=== PATIENT | male | born 2000 | race Caucasian/White ===

== ENCOUNTER 2024-05-14 00:31 | Emergency (ER) | payer SELFPAY ==
[2024-05-14 00:36] VITALS: BP 120/81; PULSE 72; RESP 18; TEMP 98.3
[2024-05-14 00:48] LABS: Glucose,Whole Blood 148 mg/dL (70-110)
--- NOTE | 2024-05-14 00:59 | ED ---
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 care or by your primary care provider. Sutures in your mouth will dissolve on their own. Please apply ice to areas of pain for 20 minutes every 3-4 hours. Your pain can be treated with ibuprofen and acetaminophen. You can take up to 400-600 mg of ibuprofen (Advil, Motrin) 3 times daily (every 8 hours) but can also use lower doses if this relieves your pain. Some people prefer naproxen (Aleve, Naprosyn) which can be taken in doses of 500 mg up to twice a day. Do not take both of these medicines together, and do not combine either with ketor olac (Toradol), meloxicam (Mobic), or indomethacin (Tivorbex). Some people can develop stomach discomfort with higher doses of either ibuprofen or naproxen, if this develops decrease your dose or stop taking it. If you need to take this dose daily for more than a week, please schedule an appointment for re- evaluation with your PCP. Please take these medications with food. You can take up to 1000 mg of acetaminophen (Tylenol) every 6 hours. Be careful as this is included in some medicines like Nyquil, [place], Percocet, Vicodin, STANBACK, Goody's Powders, and Excedrin. You can also use lidocaine patches for topical pain. You can purchase 4% patches over the counter at most drug stores. These can be helpful for pain from your muscles or bones. PLEASE call your primary care physician as soon as possible to arrange / discuss plan for followup appointment. Appointment in the next 1-3 days is strongly encouraged if possible. PLEASE let us know here before you leave if there is anything further we can do to be of any assistance. Take care and feel Better! Prescriptions: Ibuprofen 800 mg PO Q8H #21 tab Referrals: None,Stated [Primary Care Provider] - 1-2 days
[2024-05-14 01:14] LABS: Basophils # (A) 0.1 k/uL (0-0.2); Basophils % (A) 1 %; Eosinophils # (A) 0.1 k/uL (0-0.7); Eosinophils % (A) 1 %; HGB 15.5 gm/dL (13.0-17.5); Lymphocytes # (A) 3.1 k/uL (1.0-4.8); Lymphocytes % (A) 29 %; MCHC 32.9 g/dL (31.0-37.0); MCV 91.1 fL (80.0-100.0); Mean Platelet Volume 7.8; Monocytes # (A) 0.8 k/uL (0-1.0); Monocytes % (A) 7 %; Neutrophils # (A) 6.3 k/uL (1.3-7.7); Neutrophils % (A) 60 %; Platelet Count 314 k/uL (150-450); RBC 5.15 m/uL (4.30-5.90); WBC 10.5 k/uL (3.8-10.6)
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
[2024-05-14 01:27] LABS: ALT 18 U/L (4-49); AST 30 U/L (17-59); African American GFR (CKD) >90 (>60 ml/min/1.73 sqM); Albumin 4.9 g/dL (3.5-5.0); Alkaline Phosphatase 132 U/L (38-126); Anion Gap 14 mmol/L; Blood Urea Nitrogen 7 mg/dL (9-20); Calcium 9.3 mg/dL (8.4-10.2); Carbon Dioxide 21 mmol/L (22-30); Chloride 109 mmol/L (98-107); Glucose 103 mg/dL (74-99); Non-African American GFR(CKD) 88 (>60 ml/min/1.73 sqM); Sodium 144 mmol/L (137-145); Total Protein 7.4 g/dL (6.3-8.2)
[2024-05-14] MEDS: KETOROLAC 15 MG/ML 1 ML VIAL IVP STA (01:31)
[2024-05-14] MEDS: SODIUM CHLORIDE 0.9% 1,000 ML IV STA (01:33)
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
[2024-05-14] MEDS: ACETAMINOPHEN TAB 500 MG TAB PO STA (01:35)
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
[2024-05-14 01:46] LABS: Alcohol 233 mg/dL
[2024-05-14 01:48] LABS: INR 0.9 (<1.2); Partial Thromboplastin Time 21.2 sec (22.0-30.0); Prothrombin Time 10.4 sec (10.0-12.5)
[2024-05-14 02:31] LABS: Appearance,Urine Clear (Clear); Bilirubin,Urine Negative (Negative); Blood,Urine Negative (Negative); Color,Urine Colorless; Glucose,Urine (UA) Negative (Negative); Ketones,Urine Negative (Negative); Leukocyte Esterase,Urine Negative (Negative); Nitrite,Urine Negative (Negative); Protein,Urine Negative (Negative); Specific Gravity,Urine 1.018 (1.001-1.035); Urobilinogen,Urine <2.0 mg/dL (<2.0)
[2024-05-14 03:11] LABS: Amphetamine Screen,Urine Not Detected (NotDetected); Barbiturate Screen,Urine Not Detected (NotDetected); Benzodiazepines Screen,Urine Not Detected (NotDetected); Cocaine Screen,Urine Not Detected (NotDetected); Methadone Screen, Urine Not Detected (NotDetected); Opiate Screen,Urine Not Detected (NotDetected); Oxycodone Screen, Urine Not Detected (NotDetected); Phencyclidine Screen,Urine Not Detected (NotDetected); Tricyclic Antidepressant,Urine Not Detected (NotDetected); Urn Cannabinoid Scrn Not Detected (NotDetected)
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
== END 2024-05-14 04:10 | disposition home or self-care (01) ==
LOC: EC 00:31
CPT/HCPCS: 12002; 12015; 36415; 70450; 70486; 71045; 71260; 72125; 73521; 74177; 80053; 80306; 80320; 81003; 83605; 84484; 85025; 85610; 85730; 86850; 86900; 86901; 93005; 96365; 96375; 99285